=== PATIENT | male | born 1990 | race Hispanic/Latino ===

== ENCOUNTER 2020-01-15 13:05 | Outpatient (CLI) | payer BC ==
[~2020-01-15 13:05] MED LIST: Magnevist 469MG/ML 20 ML VIAL ONE
--- NOTE | 2020-01-15 14:41 | MRI ---
Exam: Brain MRI with and without contrast HISTORY: Vision changes COMPARISON: None FINDINGS: Brain MRI: Gradient echo sequence: No hemorrhage Calvarium: Appropriate T1 marrow signal intensity Midline brain parenchyma: Unremarkable Cerebrum:No parenchymal mass, mass effect or midline shift. Brain volume, age-appropriate. Cortical g ray-white matter differentiation is preserved. Ventricles: No evidence of hydrocephalus. Sinuses and mastoid air cells: Mucous retention cyst in the right ethmoid air cells and left maxillar y sinus. Adequate mastoid air cell aeration Diffusion: Central arterial flow is maintained. Absent restricted diffusion. Postcontrast Images: No pathologic enhancement of the brain parenchyma. Orbit MRI: Bilateral ocular lenses appear to be appropriately located. Symmetric signal intensity of the optic nerves and ocular rectus muscles. Retrobulbar fat is preserved. No abnormal enhancement in the intraconal or extraconal space. Optic chiasm is unremarkable. Pituitary stalk is midline. No o bvious mass in the sella. IMPRESSION: 1. No acute intracranial process. 2. No abnormal enhancement with regards to the globes/orbits. Appropriate signal intensity of the opt ic nerves.
== END 2020-01-15 13:06 | disposition home or self-care (01) ==
LOC: BICMRI 13:05
PROVIDERS: ATTEND Family Medicine
DX: H53.8 Other visual disturbances (principal); R90.89 Other abnormal findings on diagnostic imaging of central nervous system
CPT/HCPCS: 70553; A9579